=== PATIENT | female | born 1955 | race African-American/Black ===

== ENCOUNTER 2021-12-06 09:39 | Inpatient (IN) ==
[2021-12-06] MEDS ORDERED: ONDANSETRON 4 MG/2 ML VIAL IV STA (10:37)
[2021-12-06] MEDS ORDERED: HYDROmorphone 1 MG/1 ML SYRINGE IV STA (10:37)
[2021-12-06 11:10] LABS: Bilirubin,Urine Negative (Negative); Blood, Urine Negative (Negative); Glucose,Urine (UA) Negative (Negative); Ketones,Urine 15 mg/dL (Negative); Nitrite,Urine Negative (Negative); Protein,Urine Negative (Negative); RBC,Urine 1 /HPF (0-4); Squamous Epithelial Cell,Urine Occasional /HPF (0-10); Urine Appearance Clear (Clear); Urine Color Yellow (Yellow); Urine Urobilinogen 0.2 eU/dL (<2.0); Urine pH 5.5 (4.5-8.0)
[2021-12-06 11:29] LABS: Basophils % 0.2 % (0.0-0.8); Hematocrit 45.3 VOL% (35.7-47.0); Immature Granulocytes % 0.5 %; Immature Granulocytes Absolute 0.06 #; Lymphocytes # 0.9 10*3/uL (1.4-4.0); Lymphocytes % 7.4 % (21.3-54.2); Mean Corpuscular HGB Conc 30.9 GM/DL (32-36); Mean Corpuscular Volume 86.6 FL (87-102); Mean Platelet Volume 11.8 FL (9.6-12.0); Monocytes % 8.2 % (1.7-12.7); Neutrophils % 83.7 % (38.7-73.9); Platelet Count 208 T/CUMM (130-400); Red Blood Count 5.23 MC/CUMM (3.8-5.5); Red Cell Distribution Width 15.2 % (9.3-17.3); White Blood Count 12.3 T/CUMM (4-12)
[2021-12-06 11:59] LABS: Albumin 3.4 G/DL (3.4-5.0); Bilirubin,Total 0.8 MG/DL (0.20-1.00); Calcium 9.4 MG/DL (8.5-10.1); Osmolality,Calculated 283.3 MOS/KG (273-304); Potassium 3.7 MMOL/L (3.5-5.1); Total Protein 7.4 G/DL (6.4-8.2)
[2021-12-06] MEDS ORDERED: hydrALAZINE 20 MG/1 ML VIAL IV PRN (16:04)
[2021-12-06] MEDS ORDERED: ACETAMINOPHEN 325 MG TABLET PO PRN (16:04)
[2021-12-06] MEDS ORDERED: NICOTINE 21 MG/24 HR PATCH TRANSDERM PRN (16:04)
[2021-12-06] MEDS ORDERED: GLUCAGON 1 MG VIAL IM PRN (16:04)
[2021-12-06] MEDS ORDERED: guaiFENesin/DM ER 600-30 MG TABLET PO PRN (16:04)
[2021-12-06] MEDS ORDERED: ZALEPLON 5 MG CAPSULE PO PRN (16:04)
[2021-12-06] MEDS ORDERED: diphenhydrAMINE CAP 25 MG CAPSULE PO PRN (16:04)
[2021-12-06] MEDS ORDERED: ONDANSETRON 4 MG/2 ML VIAL IV PRN (16:04)
[2021-12-06] MEDS ORDERED: MORPHINE 2 MG/1 ML SYRINGE IV PRN (16:04)
[2021-12-06] MEDS ORDERED: DEXTROSE 10% 250 ML BAG IV PRN (16:14)
[2021-12-06 16:39] LABS: Arterial Base Excess iSTAT 2 MMOL/L (-2.5-2.5); Arterial Bicarbonate iSTAT 29.3 MMOL/L (20-26); Arterial O2 Saturation iSTAT 96 % (95-100); Arterial PCO2 iSTAT 55 MM HG (35-48); Arterial PO2 iSTAT 89 MM HG (80-95); Arterial Total CO2 iSTAT 31 MMO/L (23-27); Arterial pH iSTAT 7.335 (7.35-7.45)
[2021-12-06] MEDS: cefTRIAXone 1,000 MG in SODIUM CHLORIDE 0.9% 100 ML IV SCH (17:07)
[2021-12-06] MEDS: INSULIN LISPRO 100 UNIT/ML SUBCUT SCH ×2 (17:08→20:19)
[2021-12-06] MEDS: metroNIDAZOLE INJ 500 MG/100 ML PREMIX IV SCH (17:55)
[2021-12-06] MEDS: ALBUTEROL/IPRATROPIUM 3 ML NEB RESP TX SCH (19:22)
[2021-12-06] MEDS: HEPARIN 5,000 UNIT/1 ML VIAL SUBCUT SCH (20:56)
[2021-12-07] MEDS: ALBUTEROL/IPRATROPIUM 3 ML NEB RESP TX SCH ×4 (00:05→19:00)
[2021-12-07] MEDS: metroNIDAZOLE INJ 500 MG/100 ML PREMIX IV SCH ×3 (00:48→21:05)
[2021-12-07] MEDS ORDERED: CETIRIZINE 10 MG TABLET PO PRN (00:54)
[2021-12-07] MEDS: FUROSEMIDE 40 MG/4 ML VIAL IV SCH (02:31)
[2021-12-07] MEDS: AZITHROMYCIN INJ 500 MG in SODIUM CHLORIDE 0.9% 250 ML IV SCH (02:32)
[2021-12-07 05:45] LABS: Basophils % 0.1 % (0.0-0.8); Hematocrit 46.5 VOL% (35.7-47.0); Hemoglobin 14.3 GM/DL (12.0-16.0); Immature Granulocytes % 0.2 %; Immature Granulocytes Absolute 0.02 #; Lymphocytes # 0.9 10*3/uL (1.4-4.0); Lymphocytes % 9.2 % (21.3-54.2); Mean Corpuscular HGB Conc 30.8 GM/DL (32-36); Mean Corpuscular Volume 87.7 FL (87-102); Mean Platelet Volume 12.4 FL (9.6-12.0); Monocytes # 0.9 10*3/uL (0.11-0.8); Monocytes % 8.6 % (1.7-12.7); Neutrophils % 81.9 % (38.7-73.9); Platelet Count 192 T/CUMM (130-400); Red Cell Distribution Width 15.3 % (9.3-17.3); White Blood Count 10.1 T/CUMM (4-12)
[2021-12-07 06:12] LABS: Albumin 3.2 G/DL (3.4-5.0); Bilirubin,Total 0.8 MG/DL (0.20-1.00); Calcium 9.5 MG/DL (8.5-10.1); Osmolality,Calculated 283.3 MOS/KG (273-304); Potassium 3.4 MMOL/L (3.5-5.1); Total Protein 7.8 G/DL (6.4-8.2)
[2021-12-07] MEDS: INSULIN LISPRO 100 UNIT/ML SUBCUT SCH ×4 (08:09→21:06)
[2021-12-07] MEDS: BISACODYL 5 MG TABLET PO SCH (10:48)
[2021-12-07] MEDS: CHLORTHALIDONE 25 MG TABLET PO SCH (12:11)
[2021-12-07] MEDS: SPIRONOLACTONE 50 MG TABLET PO SCH (12:11)
[2021-12-07] MEDS: atenoloL 50 MG TABLET PO SCH (12:11)
[2021-12-07] MEDS: HEPARIN 5,000 UNIT/1 ML VIAL SUBCUT SCH ×2 (12:12→21:05)
[2021-12-07] MEDS: POTASSIUM CHLORIDE RIDER 10 MEQ/100 ML PREMIX IV SCH ×4 (13:55→19:43)
[2021-12-07] MEDS: cefTRIAXone 1,000 MG in SODIUM CHLORIDE 0.9% 100 ML IV SCH (17:10)
[2021-12-08] MEDS: ALBUTEROL/IPRATROPIUM 3 ML NEB RESP TX SCH ×4 (00:07→19:46)
[2021-12-08] MEDS: AZITHROMYCIN INJ 500 MG in SODIUM CHLORIDE 0.9% 250 ML IV SCH (01:30)
[2021-12-08] MEDS: FUROSEMIDE 40 MG/4 ML VIAL IV SCH (01:30)
[2021-12-08] MEDS: metroNIDAZOLE INJ 500 MG/100 ML PREMIX IV SCH ×3 (03:26→20:50)
[2021-12-08 05:23] LABS: Basophils % 0.2 % (0.0-0.8); Eosinophils % 0.1 % (0.00-10.9); Hematocrit 46.4 VOL% (35.7-47.0); Hemoglobin 14.3 GM/DL (12.0-16.0); Immature Granulocytes % 0.6 %; Immature Granulocytes Absolute 0.08 #; Lymphocytes # 1.4 10*3/uL (1.4-4.0); Lymphocytes % 10.5 % (21.3-54.2); Mean Corpuscular HGB Conc 30.8 GM/DL (32-36); Mean Corpuscular Volume 86.7 FL (87-102); Mean Platelet Volume 12.7 FL (9.6-12.0); Monocytes # 1.8 10*3/uL (0.11-0.8); Monocytes % 14.2 % (1.7-12.7); Neutrophils % 74.4 % (38.7-73.9); Platelet Count 179 T/CUMM (130-400); Red Blood Count 5.35 MC/CUMM (3.8-5.5); Red Cell Distribution Width 14.9 % (9.3-17.3); White Blood Count 12.9 T/CUMM (4-12)
[2021-12-08 05:33] LABS: Calcium 9.7 MG/DL (8.5-10.1); Potassium 3.5 MMOL/L (3.5-5.1)
[2021-12-08 05:58] LABS: Calcium 9.1 MG/DL (8.5-10.1); Osmolality,Calculated 276.8 MOS/KG (273-304); Potassium 3.5 MMOL/L (3.5-5.1)
[2021-12-08] MEDS: CHLORTHALIDONE 25 MG TABLET PO SCH (09:21)
[2021-12-08] MEDS: SPIRONOLACTONE 50 MG TABLET PO SCH (09:21)
[2021-12-08] MEDS: atenoloL 50 MG TABLET PO SCH (09:21)
[2021-12-08] MEDS: HEPARIN 5,000 UNIT/1 ML VIAL SUBCUT SCH ×2 (09:22→21:06)
[2021-12-08] MEDS: INSULIN LISPRO 100 UNIT/ML SUBCUT SCH ×4 (09:22→21:17)
[2021-12-08] MEDS: BISACODYL 5 MG TABLET PO SCH (09:23)
[2021-12-08] MEDS: POLYETHYLENE GLYCOL POWDER 17 GM PACK PO SCH (11:52)
[2021-12-08] MEDS: cefTRIAXone 1,000 MG in SODIUM CHLORIDE 0.9% 100 ML IV SCH (17:16)
[2021-12-08] MEDS: predniSONE 10 MG TABLET PO SCH (17:16)
[2021-12-08] MEDS: COLCHICINE 0.6 MG CAPSULE PO SCH (21:06)
[2021-12-09] MEDS: AZITHROMYCIN INJ 500 MG in SODIUM CHLORIDE 0.9% 250 ML IV SCH (00:23)
[2021-12-09] MEDS: ALBUTEROL/IPRATROPIUM 3 ML NEB RESP TX SCH ×4 (01:00→19:23)
[2021-12-09] MEDS: FUROSEMIDE 40 MG/4 ML VIAL IV SCH (01:24)
[2021-12-09] MEDS: metroNIDAZOLE INJ 500 MG/100 ML PREMIX IV SCH (03:42)
[2021-12-09] MEDS ORDERED: methylPREDNISolone ACETATE 40 MG/1 ML VIAL MISC INJ ONE (06:00)
[2021-12-09] MEDS ORDERED: LIDOCAINE 1% 20 ML VIAL MISC INJ ONE (06:00)
[2021-12-09 06:29] LABS: Basophils % 0.1 % (0.0-0.8); Eosinophils % 0.1 % (0.00-10.9); Hemoglobin 14.8 GM/DL (12.0-16.0); Immature Granulocytes % 0.7 %; Immature Granulocytes Absolute 0.08 #; Lymphocytes # 1.3 10*3/uL (1.4-4.0); Lymphocytes % 11.9 % (21.3-54.2); Mean Corpuscular HGB Conc 30.8 GM/DL (32-36); Mean Corpuscular Volume 85.6 FL (87-102); Mean Platelet Volume 12.5 FL (9.6-12.0); Monocytes # 1.4 10*3/uL (0.11-0.8); Monocytes % 13.1 % (1.7-12.7); Neutrophils % 74.1 % (38.7-73.9); Platelet Count 223 T/CUMM (130-400); Red Blood Count 5.61 MC/CUMM (3.8-5.5); Red Cell Distribution Width 14.8 % (9.3-17.3); White Blood Count 10.8 T/CUMM (4-12)
[2021-12-09 07:01] LABS: Albumin 2.8 G/DL (3.4-5.0); Bilirubin,Total 0.6 MG/DL (0.20-1.00); Calcium 10.1 MG/DL (8.5-10.1); Osmolality,Calculated 272.2 MOS/KG (273-304); Potassium 3.2 MMOL/L (3.5-5.1); Total Protein 7.9 G/DL (6.4-8.2)
[2021-12-09] MEDS: INSULIN LISPRO 100 UNIT/ML SUBCUT SCH ×4 (08:43→21:11)
[2021-12-09] MEDS: SPIRONOLACTONE 50 MG TABLET PO SCH (09:24)
[2021-12-09] MEDS: CHLORTHALIDONE 25 MG TABLET PO SCH (09:24)
[2021-12-09] MEDS: predniSONE 10 MG TABLET PO SCH (09:24)
[2021-12-09] MEDS: atenoloL 50 MG TABLET PO SCH (09:24)
[2021-12-09] MEDS: HEPARIN 5,000 UNIT/1 ML VIAL SUBCUT SCH ×2 (09:25→21:12)
[2021-12-09] MEDS: BISACODYL 5 MG TABLET PO SCH (09:26)
[2021-12-09] MEDS: POLYETHYLENE GLYCOL POWDER 17 GM PACK PO SCH (09:30)
[2021-12-09] MEDS: COLCHICINE 0.6 MG CAPSULE PO SCH ×2 (09:30→21:12)
[2021-12-09] MEDS ORDERED: POTASSIUM CHLORIDE 20 MEQ TABLET PO ONE (12:00)
[2021-12-09] MEDS: cefTRIAXone 1,000 MG in SODIUM CHLORIDE 0.9% 100 ML IV SCH (16:27)
[2021-12-10] MEDS: ALBUTEROL/IPRATROPIUM 3 ML NEB RESP TX SCH ×4 (00:33→19:34)
[2021-12-10] MEDS: FUROSEMIDE 40 MG/4 ML VIAL IV SCH (01:13)
[2021-12-10] MEDS: AZITHROMYCIN INJ 500 MG in SODIUM CHLORIDE 0.9% 250 ML IV SCH (01:20)
[2021-12-10 05:06] LABS: Basophils % 0.1 % (0.0-0.8); Hematocrit 49.9 VOL% (35.7-47.0); Hemoglobin 15.6 GM/DL (12.0-16.0); Immature Granulocytes % 0.4 %; Immature Granulocytes Absolute 0.04 #; Lymphocytes # 0.7 10*3/uL (1.4-4.0); Lymphocytes % 7.4 % (21.3-54.2); Mean Corpuscular HGB Conc 31.3 GM/DL (32-36); Mean Corpuscular Volume 85.4 FL (87-102); Mean Platelet Volume 12.3 FL (9.6-12.0); Monocytes # 0.6 10*3/uL (0.11-0.8); Monocytes % 5.6 % (1.7-12.7); Neutrophils % 86.5 % (38.7-73.9); Platelet Count 244 T/CUMM (130-400); Red Blood Count 5.84 MC/CUMM (3.8-5.5); Red Cell Distribution Width 14.7 % (9.3-17.3); White Blood Count 9.8 T/CUMM (4-12)
[2021-12-10 05:19] LABS: Calcium 10.2 MG/DL (8.5-10.1); Osmolality,Calculated 278.2 MOS/KG (273-304); Potassium 3.9 MMOL/L (3.5-5.1)
[2021-12-10] MEDS: INSULIN LISPRO 100 UNIT/ML SUBCUT SCH ×4 (08:41→21:56)
[2021-12-10] MEDS: BISACODYL 5 MG TABLET PO SCH (08:42)
[2021-12-10] MEDS: CHLORTHALIDONE 25 MG TABLET PO SCH (08:42)
[2021-12-10] MEDS: predniSONE 10 MG TABLET PO SCH (08:42)
[2021-12-10] MEDS: COLCHICINE 0.6 MG CAPSULE PO SCH ×2 (08:42→21:57)
[2021-12-10] MEDS: SPIRONOLACTONE 50 MG TABLET PO SCH (08:42)
[2021-12-10] MEDS: POLYETHYLENE GLYCOL POWDER 17 GM PACK PO SCH (08:42)
[2021-12-10] MEDS: atenoloL 50 MG TABLET PO SCH (08:42)
[2021-12-10] MEDS: HEPARIN 5,000 UNIT/1 ML VIAL SUBCUT SCH ×2 (08:42→21:57)
[2021-12-10] MEDS: cefTRIAXone 1,000 MG in SODIUM CHLORIDE 0.9% 100 ML IV SCH (17:40)
[2021-12-11] MEDS: ALBUTEROL/IPRATROPIUM 3 ML NEB RESP TX SCH ×5 (00:36→23:54)
[2021-12-11] MEDS: FUROSEMIDE 40 MG/4 ML VIAL IV SCH (02:00)
[2021-12-11 06:55] LABS: Basophils % 0.1 % (0.0-0.8); Hemoglobin 15.4 GM/DL (12.0-16.0); Immature Granulocytes % 0.3 %; Immature Granulocytes Absolute 0.03 #; Lymphocytes # 1.5 10*3/uL (1.4-4.0); Lymphocytes % 17.5 % (21.3-54.2); Mean Corpuscular HGB Conc 30.8 GM/DL (32-36); Mean Corpuscular Volume 85.6 FL (87-102); Mean Platelet Volume 12.1 FL (9.6-12.0); Monocytes # 1.1 10*3/uL (0.11-0.8); Monocytes % 12.9 % (1.7-12.7); Neutrophils % 69.2 % (38.7-73.9); Platelet Count 257 T/CUMM (130-400); Red Blood Count 5.84 MC/CUMM (3.8-5.5); Red Cell Distribution Width 14.8 % (9.3-17.3); White Blood Count 8.7 T/CUMM (4-12)
[2021-12-11 07:07] LABS: Osmolality,Calculated 278.5 MOS/KG (273-304); Potassium 3.5 MMOL/L (3.5-5.1)
[2021-12-11] MEDS: SPIRONOLACTONE 50 MG TABLET PO SCH (09:18)
[2021-12-11] MEDS: atenoloL 50 MG TABLET PO SCH (09:18)
[2021-12-11] MEDS: INSULIN LISPRO 100 UNIT/ML SUBCUT SCH ×4 (09:18→21:53)
[2021-12-11] MEDS: predniSONE 10 MG TABLET PO SCH (09:18)
[2021-12-11] MEDS: CHLORTHALIDONE 25 MG TABLET PO SCH (09:18)
[2021-12-11] MEDS: COLCHICINE 0.6 MG CAPSULE PO SCH ×2 (09:18→21:53)
[2021-12-11] MEDS: POLYETHYLENE GLYCOL POWDER 17 GM PACK PO SCH (09:19)
[2021-12-11] MEDS: HEPARIN 5,000 UNIT/1 ML VIAL SUBCUT SCH ×2 (09:19→21:54)
[2021-12-11] MEDS: BISACODYL 5 MG TABLET PO SCH (09:20)
[2021-12-12] MEDS: ALBUTEROL/IPRATROPIUM 3 ML NEB RESP TX SCH ×3 (07:38→19:45)
[2021-12-12] MEDS: INSULIN LISPRO 100 UNIT/ML SUBCUT SCH ×4 (07:59→21:34)
[2021-12-12] MEDS: CHLORTHALIDONE 25 MG TABLET PO SCH (09:11)
[2021-12-12] MEDS: COLCHICINE 0.6 MG CAPSULE PO SCH ×2 (09:11→21:16)
[2021-12-12] MEDS: SPIRONOLACTONE 50 MG TABLET PO SCH (09:12)
[2021-12-12] MEDS: BISACODYL 5 MG TABLET PO SCH (09:12)
[2021-12-12] MEDS: predniSONE 10 MG TABLET PO SCH (09:12)
[2021-12-12] MEDS: atenoloL 50 MG TABLET PO SCH (09:12)
[2021-12-12] MEDS: POLYETHYLENE GLYCOL POWDER 17 GM PACK PO SCH (09:13)
[2021-12-12] MEDS: FUROSEMIDE 40 MG/4 ML VIAL IV SCH (09:14)
[2021-12-12] MEDS: HEPARIN 5,000 UNIT/1 ML VIAL SUBCUT SCH ×2 (09:14→21:16)
[2021-12-13] MEDS: ALBUTEROL/IPRATROPIUM 3 ML NEB RESP TX SCH ×4 (00:20→19:25)
[2021-12-13 06:30] LABS: Basophils % 0.1 % (0.0-0.8); Eosinophils # 0.1 10*3/uL (0.0-0.87); Hematocrit 52.6 VOL% (35.7-47.0); Hemoglobin 16.4 GM/DL (12.0-16.0); Immature Granulocytes % 0.3 %; Immature Granulocytes Absolute 0.02 #; Lymphocytes # 1.9 10*3/uL (1.4-4.0); Mean Corpuscular HGB Conc 31.2 GM/DL (32-36); Mean Corpuscular Volume 84.7 FL (87-102); Mean Platelet Volume 11.9 FL (9.6-12.0); Monocytes # 0.9 10*3/uL (0.11-0.8); Monocytes % 13.2 % (1.7-12.7); Neutrophils % 58.4 % (38.7-73.9); Platelet Count 333 T/CUMM (130-400); Red Blood Count 6.21 MC/CUMM (3.8-5.5); Red Cell Distribution Width 14.6 % (9.3-17.3)
[2021-12-13 07:02] LABS: Calcium 10.4 MG/DL (8.5-10.1); Osmolality,Calculated 277.4 MOS/KG (273-304); Potassium 3.7 MMOL/L (3.5-5.1)
[2021-12-13] MEDS: BISACODYL 5 MG TABLET PO SCH (10:10)
[2021-12-13] MEDS: SPIRONOLACTONE 50 MG TABLET PO SCH (10:10)
[2021-12-13] MEDS: atenoloL 50 MG TABLET PO SCH (10:10)
[2021-12-13] MEDS: predniSONE 10 MG TABLET PO SCH (10:10)
[2021-12-13] MEDS: CHLORTHALIDONE 25 MG TABLET PO SCH (10:11)
[2021-12-13] MEDS: HEPARIN 5,000 UNIT/1 ML VIAL SUBCUT SCH ×2 (10:11→21:29)
[2021-12-13] MEDS: COLCHICINE 0.6 MG CAPSULE PO SCH ×2 (10:12→21:27)
[2021-12-13] MEDS: POLYETHYLENE GLYCOL POWDER 17 GM PACK PO SCH (10:12)
[2021-12-13] MEDS: INSULIN LISPRO 100 UNIT/ML SUBCUT SCH ×4 (10:12→21:26)
[2021-12-14] MEDS: ALBUTEROL/IPRATROPIUM 3 ML NEB RESP TX SCH ×4 (00:20→19:11)
[2021-12-14] MEDS: COLCHICINE 0.6 MG CAPSULE PO SCH ×2 (10:04→21:26)
[2021-12-14] MEDS: INSULIN LISPRO 100 UNIT/ML SUBCUT SCH ×4 (10:04→21:26)
[2021-12-14] MEDS: CHLORTHALIDONE 25 MG TABLET PO SCH (10:04)
[2021-12-14] MEDS: HEPARIN 5,000 UNIT/1 ML VIAL SUBCUT SCH ×2 (10:05→21:26)
[2021-12-14] MEDS: atenoloL 50 MG TABLET PO SCH (10:05)
[2021-12-14] MEDS: predniSONE 10 MG TABLET PO SCH (10:05)
[2021-12-14] MEDS: SPIRONOLACTONE 50 MG TABLET PO SCH (10:05)
[2021-12-14] MEDS: BISACODYL 5 MG TABLET PO SCH (12:42)
[2021-12-14] MEDS: POLYETHYLENE GLYCOL POWDER 17 GM PACK PO SCH (12:42)
[2021-12-15] MEDS: ALBUTEROL/IPRATROPIUM 3 ML NEB RESP TX SCH ×3 (01:17→14:05)
[2021-12-15] MEDS: INSULIN LISPRO 100 UNIT/ML SUBCUT SCH ×2 (07:41→13:52)
[2021-12-15] MEDS: SPIRONOLACTONE 50 MG TABLET PO SCH (09:30)
[2021-12-15] MEDS: BISACODYL 5 MG TABLET PO SCH (09:30)
[2021-12-15] MEDS: COLCHICINE 0.6 MG CAPSULE PO SCH (09:30)
[2021-12-15] MEDS: predniSONE 10 MG TABLET PO SCH (09:30)
[2021-12-15] MEDS: POLYETHYLENE GLYCOL POWDER 17 GM PACK PO SCH (09:31)
[2021-12-15] MEDS: HEPARIN 5,000 UNIT/1 ML VIAL SUBCUT SCH (09:31)
[2021-12-15] MEDS: atenoloL 50 MG TABLET PO SCH (10:10)
[2021-12-15] MEDS: CHLORTHALIDONE 25 MG TABLET PO SCH (10:10)
[2021-12-15 12:02] VITALS: BP 115/80
== END 2021-12-15 16:07 | disposition swing bed (61) | DRG 445 ==
LOC: EDUNIT# → N.ED 09:39 → N.EDINP 16:04 → SUATTDRO 16:04 → N.3E 17:14
PROVIDERS: ADMIT Internal Medicine; ATTEND Internal Medicine